=== PATIENT | male | born 1985 | race Caucasian/White ===

== ENCOUNTER → 2019-06-14 14:56 | Outpatient (CLI) | payer BC, SELFPAY ==
[2019-06-14 17:36] LABS: Absolute Lymphocyte Count 2.13 X10^3/uL (0.83-4.51); Absolute Neutrophil Count 3.8 X10^3/uL (2.0-7.7); Basophil# 0.01 X10^3/uL; Basophil% 0.1 % (0-1); Eosinophil# 0.25 X10^3/uL; Eosinophils% 3.7 % (0-5); Hemoglobin 16.3 g/dL (13.0-16.5); Lymphocyte # 2.13 X10^3/ul (4.0); Lymphocyte % 31.6 % (19-41); Mean Corpuscular Hgb 29.6 pg (27.0-32.0); Mean Corpuscular Volume 87.3 fL (80-94); Mean Platelet Vol. 10.2 fl (6.2-12.0); Monocyte# 0.58 X10^3/uL; Monocyte% 8.6 % (0-10); NRBC Flagged by Analyzer 0 % (0-5); Neutrophil # 3.76 X10^3/uL (2.7-7.7); Neutrophil % 55.9 % (47-70); Platelet Count 286 K/mm3 (150-450); RBC Distribution Width CV 12.2 % (11.6-14.6); RBC Distribution Width SD 39.2 fl (35.1-43.9); White Blood Count 6.7 K/mm3 (4.4-11.0)
[2019-06-14 18:52] LABS: ALB/GLOB Ratio 1.1 RATIO (0.9-2.4); AST(SGOT) 104 U/L (15-37); Alanine Aminotransfer ALT/SGPT 320 U/L (16-61); Albumin, Serum 4.1 g/dL (3.2-5.0); Alkaline Phosphatase 105 U/L (45-117); Anion Gap 6 (5-15); BUN 19 mg/dL (7-18); BUN/Creat Ratio 21.1 RATIO (10-20); Calcium,Total 9.5 mg/dL (8.5-10.1); Chloride 105 mmol/L (98-107); Cholesterol 263 mg/dL (200); EST Glomerular Filtration Rate 103 mL/min (>60); Est Glom Filt Rate - Afr Amer 124 mL/min (>60); Ferritin 268 ng/mL (26-388); Globulin 3.7 g/dL (2.2-4.2); Glucose 85 mg/dL (74-106); High Density Lipoprotein 45 mg/dL; Potassium 4.5 mmol/L (3.5-5.1); Protein, Total 7.8 g/dL (6.4-8.2); Sodium Level 136 mmol/L (136-145); Thyroid Stim Hormone (TSH) 3.26 uIU/mL (0.358-3.74)
== END ==
PROVIDERS: PCP Family Medicine; Visit Provider Family Medicine
DX: G25.81 Restless legs syndrome (principal); I10 Essential (primary) hypertension
CPT/HCPCS: 36415; 80053; 82465; 82728; 83718; 84443; 85025

== ENCOUNTER → 2019-06-15 12:11 | Outpatient (CLI) | payer BC, SELFPAY ==
[2019-06-16 09:03] LABS: Hepatitis B Surface Antibody Non-Reactive
[2019-06-16 09:06] LABS: Hepatitis C Antibody REACTIVE (Nonreactive)
[2019-06-19 14:48] LABS: ANTINUCLEAR ANTIBODIES DIRECT Negative (Negative)
[2019-06-19 16:07] LABS: Endomysial Antibody IgA Negative (Negative); Hepatitis A AB, Total Negative (Negative); Immunoglobulin A 369 mg/dL (90-386)
[2019-06-19 17:02] LABS: Anti-Smooth Muscle ABS 11 Units (0-19); Hepatitis A IgM Antibody Negative (Negative); t-Transglutaminase IgA <2 U/mL (0-3)
== END ==
PROVIDERS: PCP Family Medicine; Visit Provider Family Medicine
DX: R74.0 Nonspecific elevation of levels of transaminase and lactic acid dehydrogenase [LDH] (principal)
CPT/HCPCS: 36415; 82784; 83516; 86038; 86255; 86706; 86708; 86709; 86803

== ENCOUNTER → 2019-06-19 09:34 | Outpatient (CLI) | payer BC, SELFPAY ==
[2019-06-19 13:26] LABS: HIV - WCH Non-Reactive (Nonreactive); Hepatitis B Surface Antigen Non-Reactive (Nonreactive)
[2019-06-22 08:06] LABS: Rapid Plasmin Reagin (RPR) NONREACTIVE (NONREACTIVE)
[2019-06-22 16:07] LABS: HCV Quant. RNA PCR 183000 IU/mL (.)
[2019-06-22 16:15] LABS: HCV log 10 5.262 (.)
== END ==
PROVIDERS: PCP Family Medicine; Visit Provider Family Medicine
DX: R76.8 Other specified abnormal immunological findings in serum (principal); R74.0 Nonspecific elevation of levels of transaminase and lactic acid dehydrogenase [LDH]
CPT/HCPCS: 36415; 82784; 83516; 86255; 86592; 86703; 86708; 86709; 86803; 87340; 87522

== ENCOUNTER → 2020-04-17 11:10 | Outpatient (CLI) | payer BC, SELFPAY ==
[2020-04-17 15:16] LABS: Absolute Lymphocyte Count 1.59 X10^3/uL (0.83-4.51); Basophil# 0.01 X10^3/uL; Basophil% 0.2 % (0-1); Eosinophil# 0.16 X10^3/uL; Eosinophils% 3.8 % (0-5); Hematocrit 43.6 % (40-54); Hemoglobin 14.7 g/dL (13.0-16.5); Lymphocyte # 1.59 X10^3/ul (4.0); Lymphocyte % 37.8 % (19-41); Mean Corp Hgb Conc 33.7 g/dL (32-36); Mean Corpuscular Hgb 29.9 pg (27.0-32.0); Mean Corpuscular Volume 88.6 fL (80-94); Monocyte# 0.48 X10^3/uL; Monocyte% 11.4 % (0-10); NRBC Flagged by Analyzer 0 % (0-5); Neutrophil # 1.96 X10^3/uL (2.7-7.7); Neutrophil % 46.6 % (47-70); Platelet Count 217 K/mm3 (150-450); RBC Distribution Width CV 12.1 % (11.6-14.6); RBC Distribution Width SD 38.8 fl (35.1-43.9); Red Blood Count 4.92 M/mm3 (4.6-6.2); White Blood Count 4.2 K/mm3 (4.4-11.0)
[2020-04-17 15:32] LABS: Prothrombin Time (Protime)PT. 12.8 SECONDS (11.7-14.9)
[2020-04-17 15:51] LABS: AST(SGOT) 217 U/L (15-37); Alanine Aminotransfer ALT/SGPT 506 U/L (16-61); Alkaline Phosphatase 114 U/L (45-117); Anion Gap 8 (5-15); BUN 16 mg/dL (7-18); BUN/Creat Ratio 16.1 RATIO (10-20); Bilirubin, Direct 0.15 mg/dL (0.00-0.30); Calcium,Total 9.4 mg/dL (8.5-10.1); Chloride 104 mmol/L (98-107); EST Glomerular Filtration Rate 91 mL/min (>60); Est Glom Filt Rate - Afr Amer 110 mL/min (>60); Globulin 3.7 g/dL (2.2-4.2); Glucose 99 mg/dL (74-106); Potassium 3.9 mmol/L (3.5-5.1); Protein, Total 7.7 g/dL (6.4-8.2); Sodium Level 138 mmol/L (136-145)
[2020-04-17 16:19] LABS: HIV - WCH Non-Reactive (Nonreactive); Hepatitis B Surface Antibody Non-Reactive; Hepatitis B Surface Antigen Non-Reactive (Nonreactive)
[2020-04-22 03:06] LABS: Comment 2b (.); HCV Quant. RNA PCR 1580000 IU/mL (.); Hepatitis A AB, Total Negative (Negative); Hepatitis A IgM Antibody Negative (Negative); Hepatitis B Core Ab Total Negative (Negative)
[2020-04-22 12:12] LABS: HCV log 10 6.199 (.); Hepatitis B Core AB IgM Negative (Negative)
== END ==
PROVIDERS: PCP Family Medicine; Referring Provider Family Medicine; Visit Provider Internal Medicine Infectious Disease
DX: B18.2 Chronic viral hepatitis C (principal)
CPT/HCPCS: 36415; 80048; 80076; 85025; 85610; 86703; 86704; 86705; 86706; 86708; 86709; 87340; 87522; 87902

== ENCOUNTER → 2024-05-11 | Outpatient (CLI) | payer BC, SELFPAY ==
[2024-05-11 12:39] LABS: Absolute Lymphocyte Count 1.78 X10^3/uL (0.83-4.51); Absolute Neutrophil Count 2.4 X10^3/uL (2.0-7.7); Basophil# 0.01 X10^3/uL; Basophil% 0.2 % (0-1); Eosinophil# 0.18 X10^3/uL; Eosinophils% 3.8 % (0-5); Hematocrit 39.9 % (40-54); Hemoglobin 13.8 g/dL (13.0-16.5); Lymphocyte # 1.78 X10^3/ul (0.83-4.51); Lymphocyte % 37.2 % (19-41); Mean Corp Hgb Conc 34.6 g/dL (32-36); Mean Corpuscular Hgb 29.9 pg (27.0-32.0); Mean Corpuscular Volume 86.4 fL (80-94); Mean Platelet Vol. 9.7 fl (6.2-12.0); Monocyte# 0.37 X10^3/uL; Monocyte% 7.7 % (0-10); NRBC Flagged by Analyzer 0 % (0-5); Neutrophil # 2.43 X10^3/uL (2.7-7.7); Neutrophil % 50.9 % (47-70); Platelet Count 245 K/mm3 (150-450); RBC Distribution Width CV 11.9 % (11.6-14.6); RBC Distribution Width SD 37.6 fl (35.1-43.9); Red Blood Count 4.62 M/mm3 (4.6-6.2); White Blood Count 4.8 K/mm3 (4.4-11.0)
[2024-05-11 13:07] LABS: Luteinizing Hormone 2.8 mIU/mL; PSA,Total - Annual Screen 0.59 ng/mL (0.02-4.00)
== END | disposition home or self-care (01) ==
LOC: MFPLAB 09:18
PROVIDERS: PCP Family Medicine
DX: E29.1 Testicular hypofunction (principal)
CPT/HCPCS: 36415; 83002; 84146; 84153; 84402; 84403; 85025; G0103

== ENCOUNTER → 2024-09-01 | Outpatient (CLI) | payer BC, SELFPAY ==
--- OUTSIDE RECORDS SUMMARY | 2024-09-01 12:38 | XMS RPT_ITS | CCD ---
Author Organization [facility] Care Team Providers Care Attending Urologist Name Role Phone Marielle Gage MD Primary Care Provider [phone] URVASHI MOSELEY Attending Unavailable MARIELLE GAGE Primary Care Unavailable Marielle Gage MD Primary Care Provider DEMARCUS BOWSER Attending Unavailable Marielle Gage Primary Care Unavailable Marielle Gage Primary Care Unavailable Marielle Gage Attending Unavailable Marielle Gage Referring Unavailable Marielle Gage Primary Care Unavailable Marielle Gage Attending Unavailable Marielle Gage Referring Unavailable Medications Current Medications Medication Drug Class(es) Dates Sig (Normalized) Sig (Original) tadalafil 5 mg oral tablet (3 sources) Phosphodiesterase 5 Inhibitor Start: 11-12-2022 End: 02-23-2024 take 1 tablet by mouth once daily as needed Tadalafil (CIALIS) 5 mg tablet TAKE 1 TABLET BY MOUTH ONCE DAILY NEEDED 1 TO 2 HOURS BEFORE SEXUAL ACTIVITY. 90 tablet 5 02/23/2024 Active Comment on above: Take 1 tablet by cecile th once daily as needed. Take 1-2 hours before sexual activity. 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-2024 Chronic Other male genital disorders (1 source) Induration penis plastica; Translations: [Peyronie's disease] Onset: 11-12-2022 Chronic Other male genital disorders (1 source) Other specified disorders of penis; Translations: [Penile pain] Onset: 11-12-2022 Chronic Other male genital disorders (1 source) Male erectile dysfunction, unspecified; Translations: [Impotence of organic origin] Onset: 11-12-2022 Chronic Results Test Name Value Interpretation Reference Range Facil ity PROLACTIN 4465on 04-07-2025 PROLACTIN 17.7 ng/mL Normal 3.9-22.7 [facility] Comment on above: Result Comment: Perf ormed at: - [facility] [id number] [employer] Armhole Baster: Sonu Mancuso PhD, Phone: [phone] Performed at: - [facility] [id number] [employer] Armhole Baster: Jeff Aguilar MD, Phone: [phone] Performed By: #### L 3100.5400, L3410.9998, L100.0100, L3100.5170, L3100.5310, L501.9910 #### [facility] [address] [place], [place], [id number] Testosterone, Total / Freeon 05-22-2024 TESTOSTER,FREE 4.72 ng/dL Abnormal 5.00-21.00 [facility] Comment on above: Order Comment: N Performed By: #### L 3100.5400, L3410.9998, L100.0100, L3100.5170, L3100.5310, L501.9910 #### [facility] [address] [place], [place], [id number] TESTOSTER,TOTAL 191 ng/dL Low 264-916 [facility] Comment on above: Order Comment: N Result Comment: Adul t male reference interval is based on a population of healthy nonobese males (BMI <30) between 19 and 39 years old. Sravanthi et.al. JCEM 2017,102;1470-9594. PMID: 91986260. Performed By: #### L 3100.5400, L3410.9998, L100.0100, L3100.5170, L3100.5310, L501.9910 #### [facility] [address] [place], [place], [phone] (682) TESTOSTERONE,%F 2.47 Normal 1.50-4.20 [facility] Comment on above: Order Comment: N Performed By: #### L 3100.5400, L3410.9998, L100.0100, L3100.5170, L3100.5310, L501.9910 #### [facility] [address] [place], [address] L3410.9998on 05-17-2024 [facility] Misc. Normal [facility] Comment on above: Order Comment: ADDED TO [facility] [id number] TESTOSTERONE LC/MS/F/T SERUMRF Result Comment: TEST RESULTS LIMITS Testosterone, Total, LC/MS, 228.1 Low ng/dL 264.0-916.0 This [facility] LC/MS-MS method is currently certified by the CDC Hormone Standardization Program (HoSt). Adult male reference interval is based on a population of healthy nonobese males (BMI <30) between 19 and 39 years old. april Fishman.al. JCEM 2017,102;8042-5267. PMID: 39903390. Free Testosterone(Direct) 10.6 pg/mL 8.7-25.1 TESTING PERFORMED AT [facility]. ORIGINAL REPORT ON FILE IN LAB CONTAINS ADDITIONAL TEST SITE INFORMATION. Performed By: #### L 3100.5400, L3410.9998, L100.0100, L3100.5170, L3100.5310, L501.9910 #### [facility] [address] [place], [address] CBC W/Diff, Automatedon 04-16 Absolute Lymph 1.78 X10 3/uL Normal 0.83-4.51 [facility] Comment on above: Performed By: #### L 3100.5400, L3410.9998, L100.0100, L3100.5170, L3100.5310, L501.9910 #### [facility] [address] [place], [address] Absolute Neut 2.4 X10 3/uL Normal 2.0-7.7 [facility] Comment on above: Performed By: #### L 3100.5400, L3410.9998, L100.0100, L3100.5170, L3100.5310, L501.9910 #### [facility] [address] [place], [address] Basophils/100 WBC (Bld) 0.2 % Normal 0-1 [facility] Comment on above: Performed By: #### L 3100.5400, L3410.9998, L100.0100, L3100.5170, L3100.5310, L501.9910 #### [facility] [address] [place], [address] Eosinophils/100 WBC (Bld) 3.8 % Normal 0-5 [facility] Comment on above: Performed By: #### L 3100.5400, L3410.9998, L100.0100, L3100.5170, L3100.5310, L501.9910 #### [facility] [address] [place], [address] Erythrocyte distribution width (RBC) [Ratio] 11.9 % Normal 11.6-14.6 [facility] Comment on above: Performed By: #### L 3100.5400, L3410.9998, L100.0100, L3100.5170, L3100.5310, L501.9910 #### [facility] [address] [place], [address] Hematocrit (Bld) [Volume fraction] 39.9 % Low 40-54 [facility] Comment on above: Performed By: #### L 3100.5400, L3410.9998, L100.0100, L3100.5170, L3100.5310, L501.9910 #### [facility] [address] [place], [address] Hemoglobin (Bld) [Mass/Vol] 13.8 g/dL Normal 13.0-16.5 [facility] Comment on above: Performed By: #### L 3100.5400, L3410.9998, L100.0100, L3100.5170, L3100.5310, L501.9910 #### [facility] [address] [place], [address] IG% 0.200 Normal 0.0-0.9 [facility] Comment on above: Result Comment: IG% - Immature Granulocytes (promyelocytes, myelocytes and metamyelocytes) > 1% indicates that a LEFT SHIFT is Present. Performed By: #### L 3100.5400, L3410.9998, L100.0100, L3100.5170, L3100.5310, L501.9910 #### [facility] [address] [place], [address] Lymphocytes/100 WBC (Bld) 37.2 % Normal 19-41 [facility] Comment on above: Performed By: #### L 3100.5400, L3410.9998, L100.0100, L3100.5170, L3100.5310, L501.9910 #### [facility] [address] [place], [address] MCH (RBC) [Entitic mass] 29.9 pg Normal 27.0-32.0 [facility] Comment on above: Performed By: #### L 3100.5400, L3410.9998, L100.0100, L3100.5170, L3100.5310, L501.9910 #### [facility] [address] [place], [address] MCHC (RBC) [Mass/Vol] 34.6 g/dL Normal 32-36 [facility] Comment on above: Performed By: #### L 3100.5400, L3410.9998, L100.0100, L3100.5170, L3100.5310, L501.9910 #### [facility] [address] [place], [address] MCV (RBC) [Entitic vol] 86.4 fL Normal 80-94 [facility] Comment on above: Performed By: #### L 3100.5400, L3410.9998, L100.0100, L3100.5170, L3100.5310, L501.9910 #### [facility] [address] [place], [address] Monocytes/100 WBC (Bld) 7.7 % Normal 0-10 [facility] Comment on above: Performed By: #### L 3100.5400, L3410.9998, L100.0100, L3100.5170, L3100.5310, L501.9910 #### [facility] [address] [place], [address] Neutrophils/100 WBC (Bld) 50.9 % Normal 47-70 [facility] Comment on above: Performed By: #### L 3100.5400, L3410.9998, L100.0100, L3100.5170, L3100.5310, L501.9910 #### [facility] [address] [place], [address] Nucleated RBC (Bld) [#/Vol] 0 10*3/uL Normal 0-5 [facility] Comment on above: Performed By: #### L 3100.5400, L3410.9998, L100.0100, L3100.5170, L3100.5310, L501.9910 #### [facility] [address] [place], [address] Platelet mean volume (Bld) [Entitic vol] 9.7 fL Normal 6.2-12.0 [facility] Comment on above: Performed By: #### L 3100.5400, L3410.9998, L100.0100, L3100.5170, L3100.5310, L501.9910 #### [facility] [address] [place], [address] Platelets (Bld) [#/Vol] 245 10*3/uL Normal 150-450 [facility] Comment on above: Performed By: #### L 3100.5400, L3410.9998, L100.0100, L3100.5170, L3100.5310, L501.9910 #### [facility] [address] [place], [address] RBC (Bld) [#/Vol] 4.62 10*6/uL Normal 4.6-6.2 [facility] Comment on above: Performed By: #### L 3100.5400, L3410.9998, L100.0100, L3100.5170, L3100.5310, L501.9910 #### [facility] [address] [place], [address] RDW SD 37.6 fl Normal 35.1-43.9 [facility] Comment on above: Performed By: #### L 3100.5400, L3410.9998, L100.0100, L3100.5170, L3100.5310, L501.9910 #### [facility] [address] [place], [address] WBC (Bld) [#/Vol] 4.8 10*3/uL Normal 4.4-11.0 [facility] Comment on above: Performed By: #### L 3100.5400, L3410.9998, L100.0100, L3100.5170, L3100.5310, L501.9910 #### [facility] [address] [place], [place], [address] Luteinizing Hormoneon 2024 LH 2.8 mIU/mL Normal [facility] Comment on above: Result Comment: FEMA LE: Follicular: 1.9-12.5 mIU/mL Midcycle: 8.7-76.3 mIU/mL Luteal: 0.5-16.9 mIU/mL Post Menopause: 15.9-54.0 mIU/mL MALE: 20-70 Years: 1.5-9.3 mIU/mL >70 Years: 3.1-34.6 mIU/mL Performed By: #### L 3100.5400, L3410.9998, L100.0100, L3100.5170, L3100.5310, L501.9910 #### [facility] [address] [place], [place], [id number] PSA,Total - Annual Screenon 05-11-2024 PSA,TOT SCREEN 0.59 ng/mL Normal 0.02-4.00 [facility] Comment on above: Result Comment: This test was performed using the [facility] tPSA method. Measured values of a patient??sample can vary depending on the testing procedure used. PSA values determined on patient samples by different testing procedures cannot be used interchangeably. If there is a change in PSA assays while monitoring therapy, sequential testing should be performed to confirm baseline values. Performed By: #### L 3100.5400, L3410.9998, L100.0100, L3100.5170, L3100.5310, L501.9910 #### [facility] [address] [place], [address] CNOVon 11-12-2022 CNOV Office Visit (AKURFL ) CHARLETTE DAVIES ([id number]) 1985 M Date Time Provider Department 11/12/22 9:00 AM URVASHI MOSELEY During your visit today, we recorded the following information about you: Pulse Weight Height 68/minute 108.9 kg 1.829 m Urvashi Moseley MD 11/12/2022 9:51 AM Signed [facility] UROLOGY NEW PATIENT CLINIC NOTE PATIENT INFO: Charlette Davies (37 year old) Referred by: No referring provider defined for this encounter. 11/12/2022 UROLOGY DIAGNOSES: 1. Peyronie's disease - ICD9: 607.85, ICD10: N48.6 (primary diagnosis) 2. Penile pain - ICD9: 607.9, ICD10: N48.89 3. 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 Low scores (10 or less) suggest moderate to severe ED. PMH: History reviewed. No pertinent past medical history. PSH: History reviewed. No pertinent surgical history. SH: Social History Tobacco Use Smoking status: Never Smokeless tobacco: Never Substance Use Topics Alcohol use: Yes Alcohol/week: 1.0 standard drink of alcohol Types: 1 Cans of beer per week Comment: one every 2 months Drug use: Never FH: History reviewed. No pertinent family history. REVIEW OF SYSTEMS: Review of Systems: Constitutional: No weakness, fever/chills, unexplained weight change Psychiatric: Stable mood Skin: No rashes or lesions HEENT: No blurred vision or double vision. No severe or worsening headaches. Sense of smell intact Neck: No masses or pain Chest: No shortness of breath or cough. No history of recurrent pneumonia, bronchitis, or sinustitis. CVS: No chest pains or palpatations. No history of cardiovascular disease. GI: No nausea, vomiting or abdominal pain Neurologic: No weakness or sensory changes : see above Musculoskeletal: Stable All other systems reviewed and noncontributory Allergy: Patient has no known allergies. MEDICATIONS: Current Outpatient Medications Medication Sig Dispense Refill Tadalafil (CIALIS) 5 mg tablet Take 1 tablet by mouth once daily as needed. Take 1-2 hours before sexual activity. 90 tablet 5 No current facility-administered medications for this visit. PHYSICAL EXAM: Pulse 68 Ht 182.9 cm (6') Wt 108.9 kg (240 lb) BMI 32.55 kg/m? Body mass index is 32.55 kg/m?. General Appearance/ Constitutional: Well developed, well nourished, and in no apparent distress HEENT: Normal Neck: Lymph Nodes: Normal Cardiac: Normal Breast: Not examined Pulmonary: Ascultation: Not examined Effort: Normal GI: Soft, Non-tender, Non-distended and Costovertebral angle tenderness absent Peripheral Vascular: Not examined Extremities: Cyanosis absent, Clubbing absent and Edema absent Skin: Normal Neurologic: Normal, Grossly non-focal, Alert and oriented and Affect appropriate (MALE): Penis: Normal without external lesions and Circumcised, palp plaque midshaft Testicles: Normal Scrotum: Normal No results found for: PSA, PSAPER DIAGNOSES: 1. Peyronie's disease - ICD9: 607.85, ICD10: N48.6 (primary diagnosis) 2. Penile pain - ICD9: 607.9, ICD10: N48.89 3. 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 Will start Cialis 5mg daily Will trial traction tx RTO 6 mo, discussed PDDU, etc, goniometer given Urvashi Moseley MD Allergies As of Date: 11/12/2022 (No Known Allergies) Date Reviewed: 11/12/2022 Reviewed by: Fartun Canela Cma - Fully Assessed Reason for Visit: Peyronie's Disease [351] Primary Visit Diagnosis:Peyronie's disease [N48.6] Other Visit Diagnoses:Penile pain [N48.89] Impotence of organic origin [N52.9] Order(s):Tadalafil (CIALIS) 5 mg tabletTake 1 tablet by mouth once daily as needed. Take 1-2 hours before sexual activity.Disp: 90 tabletRfl: 5 Prescriptions as of 11/12/2022 - Tadalafil (CIALIS) 5 mg tablet Take 1 tablet by mouth once daily as needed. Take 1-2 hours before sexual activity. Problem List As Of Date: 11/12/2022 (None) Prescriptions ordered this encounter Disp Refills Start End TADALAFIL 5 MG TABLET 90 (more content not included)... Normal [facility] CHARLE[facility] DAVIES ([id number]) 1985 M Date Time Provider Department 11/12/22 URVASHI MOSELEY During your visit today, we recorded the following information about you: Saul Sewell MA 11/12/2022 1:07 PM Signed Patient called in he was seen today for peyronie's disease. He was able to fine a device called Phallosan Forte online that is less expensive than the 2 you had mentioned to him. He wanted to make sure this would be ok to use. DANIELLE Zhu Donna, MA 11/12/2022 1:25 PM Signed Left message to call office to advise patient of below. DANIELLE Zhu Donna, MA 11/12/2022 1:32 PM Signed Patient called back and was advised of Dr. Moseley recommendations. Saul Derrit, HISTORICAL MANUSCRIPTS CURATOR Allergies As of Date: 11/12/2022 (No Known Allergies) Date Reviewed: 11/12/2022 Reviewed by: Fartun Canela Cma - Fully Assessed Reason for Visit: Patient Question [4337] Prescriptions as of 11/12/2022 - Tadalafil (CIALIS) 5 mg tablet Take 1 tablet by mouth once daily as needed. Take 1-2 hours before sexual activity. Problem List As Of Date: 11/12/2022 (None) Encounter Status:Closed by SAUL SEWELL on 11/12/22 [facility] CNPNichole 08-14-2022 CNPN Telephone (UROLAE) CHARLETTE DAVIES ([id number]) 1985 Date Time Provider Department 08/14/22 DEVIN HARTLEY During your visit today, we recorded the following information about you: Angelique cisneros MA 08/14/2022 11:35 AM Signed LMOM for pt to call office back pt 08/19/2022 appt was r/s to Dr. Moseley 10/08/2022. Angelique cisneros MA Allergies As of Date: 08/14/2022 (Not on File) Date Reviewed: Never Reviewed Reason for Visit: Appointment [186] Problem List As Of Date: 08/14/2022 (None) Encounter Status:Closed by ANGELIQUE CISNEROS on 08/14/22 [facility] ELASTOGRAPHY WITH IMAGINGon 07-10-2020 ELASTOGRAPHY WITH IMAGING ELASTOGRAPHY WITH IMAGING Ordering Physician: Guevara Mcfarland MD 07/10/2020 11:00 AM ULTRASOUND OF THE LIVER AND ELASTOGRAPHY: Clinical Statement: Chronic hepatitis C. FINDINGS: The liver measures 16.9 cm in length. Hepatic parenchymal echogenicity is within normal limits. No focal liver mass. No perihepatic ascites. ARFI median: 1.0 m/s IQR - 0.05 IQR/median ratio = 0.10 (must be 0.15 or less to ensure technical adequacy) Recommendation for Interpretation of Liver Stiffness Values Obtained with ARFI Techniques in Patients with Viral Hepatitis and NAFLD: Liver Stiffness Value: Recommendation: <=5 kPa (1.3 m/sec) High probability of being normal <9 kPa (1.7 m/sec) In absence of other known clinical signs, rules out cACLD. <9 kPa (1.7 m/sec) If known clinical signs, may need further test for confirmation. 9-13 kPa (1.7-2.1 m/sec) Suggestive of cACLD but need further test for confirmation > 13 kPa (2.1 m/sec) Rules in cACLD > 17 kPa (2.4 m/sec) Suggestive of CSPH ARFI = acoustic radiation force impulse cACLD = compensated advanced chronic liver disease CSPH = clinically significant portal hypertension NAFLD = non-alcoholic fatty liver disease IMPRESSION: Unremarkable sonographic appearance of the liver. Liver elastography results indicate a high probability of being normal. ---- Electronic Signature on File ---- Signed By: Leonard Fisher MD [email or web address] Dictated: 07/10/2020 11:54 AM Signed: 07/10/2020 11:55 AM Reported By: LEONARD FISHER M.D. Signed By: LEONARD FISHER M.D. [facility] Encounters Encounter Date Encounter Type Care Provider Facility Start: 05-24-2024 ambulatory Marielle Gage Facility:[facility] Start: 05-23-2024 ambulatory Marielle Gage Facility:[facility] Start: 05-11-2024 End: 05-11-2024 ambulatory DEMARCUS BOWSER Facility:[facility] Start: 02-22-2024 End: 02-23-2024 Refill Urvashi Moseley MD Work Phone: [facility] Comment on above: Refill Request Start: 11-12-2022 Telephone encounter Urvashi griffin MD Work Phone: Urology Comment on above: Patient Question Start: 11-12-2022 End: 11-12-2022 ambulatory [facility] Facility:[facility] Start: 08-14-2022 Telephone encounter Devin valero MD Work Phone: Urology Comment on above: Appointment Plan of Treatment Date Care Activity Detail Author Start: 10-17-2023 Covid-19 Vaccine ( season) Covid-19 Vaccine ( season) [facility] Start: 10-17-2023 Influenza vaccination Influenza Vacc ine (#1) [facility] Start: 10-16-2022 Influenza vaccination [facility] Start: 02-15-2022 DEPRESSION ASSESSMENT DEPRESSION ASS ESSMENT [facility] Start: 2020 Lipid 1996 panel - S ebenezer or Plasma Lipid Screening [facility] Start: 2020 Lipid panel Lipid Screening [facility] Start: 2020 LIPID SCREEN LIPID SCREEN [facility] Start: 2004 Hepatitis B Vaccine (1 of 3 - 19+ 3-dose series) Hepatitis B Vaccine (1 of 3 - 19+ 3-dose series) [facility] Start: 2004 Urine microalbumin profile [facility] Start: 06-25-2003 Anxiety Screening Anxiety Screening [facility] Start: 06-25-2003 Depression Screening Depression Scre ening [facility] Start: 06-25-2003 HEPATITIS C SCREENING HEPATITIS C [facility] Start: 06-25-2003 Hepatitis C screening Hepatitis C [facility] Start: 06-25-2003 HIV SCREENING HIV SCREENING [facility] Start: 06-25-2003 HIV screening HIV Screening [facility] Start: 1985 COVID-19 VACCINE (#1) COVID-19 VACCI NE (#1) [facility] Start: 1985 HEPATITIS B (1 of 3 - 3-dose series) HEPATITIS B (1 of 3 - 3-dose series) [facility] Start: 1985 Hepatitis B Vaccine (1 of 3 - 3-dose series) Hepatitis B Vaccine (1 of 3 - 3-dose series) [facility] Payers Date Payer Category Payer Unknown [id number] 2024 Self-pay 2018 Unknown [employer] PPO OOS [id number] 2018-Present [phone] [address] [place] [address] PPO [id number] 2018 Unknown [id number] Unknown [id number] Unknown [id number] Unknown [id number] Social History Date Type Detail Facility Tobacco smoking stat [facility] Tobacco smoking consumption unknown [facility] Start: 1985 Sex Assigned At Not on file [facility] Start: 11-12-2022 Tobacco smoking stat [facility] Never smoked tobacco [facility] Start: 11-12-2022 Tobacco use and exposure Smokeless t obacco non-user [facility] Start: 11-12-2022 Alcohol intake Current drinke r of alcohol (finding) [facility] Start: 11-12-2022 Alcohol intake [facility] Start: 11-12-2022 Tobacco use panel [facility] National Score (1-10 0), lower number is lower risk 72 [facility] Start: 11-12-2022 Alcohol Comment one every 2 months [facility] Note 11-12-2022 Telephone Encounter - Saul Sewell MA - 11/12/2022 1:32 PM EDTTelephone Encounter - Saul Sewell MA - 11/12/2022 1:25 PM EDTTelephone Encounter - Saul Sewell MA - 11/12/2022 1:03 PM EDT Note Date & Type Note Facility 11-12-2022 Miscellaneous Notes Formattin g of this note might be different from the original. Patient called back and was advised of Dr. Lorelei Sewell CMA Left message to call office to advise patient of below. Saul Sewell CMA Patient called in he was seen today for peyronie's disease. He was able to fine a device called Phallosan Forte online that is less expensive than the 2 you had mentioned to him. He wanted to make sure this would be ok to use. Saul Sewell CMA documented in this encounter [facility] Progress note 11-12-2022 Note Date & Type Note Facility 11-12-2022 Note HNO ID: [id number] Author: Urvashi Moseley MD Service: ? Author Type: Physician Type: Progress Notes Filed: 11/12/2022 9:51 AM Note Text: [facility] UROLOGY NEW PATIENT CLINIC NOTE PATIENT INFO: Charlette Davies (37 year old) Referred by: No referring provider defined for this encounter. 11/12/2022 UROLOGY DIAGNOSES: 1. Peyronie's disease - ICD9: 607.85, ICD10: N48.6 (primary diagnosis) 2. Penile pain - ICD9: 607.9, ICD10: N48.89 3. 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 Low scores (10 or less) suggest moderate to severe ED. PMH: History reviewed. No pertinent past medical history. PSH: History reviewed. No pertinent surgical history. SH: Social History Tobacco Use Smoking status: Never Smokeless tobacco: Never Substance Use Topics Alcohol use: Yes Alcohol/week: 1.0 standard drink of alcohol Types: 1 Cans of beer per week Comment: one every 2 months Drug use: Never FH: History reviewed. No pertinent family history. REVIEW OF SYSTEMS: Review of Systems: Constitutional: No weakness, fever/chills, unexplained weight change Psychiatric: Stable mood Skin: No rashes or lesions HEENT: No blurred vision or double vision. No severe or worsening headaches. Sense of smell intact Neck: No masses or pain Chest: No shortness of breath or cough. No history of recurrent pneumonia, bronchitis, or sinustitis. CVS: No chest pains or palpatations. No history of cardiovascular disease. GI: No nausea, vomiting or abdominal pain Neurologic: No weakness or sensory changes : see above Musculoskeletal: Stable All other systems reviewed and noncontributory Allergy: Patient has no known allergies. MEDICATIONS: Current Outpatient Medications Medication Sig Dispense Refill Tadalafil (CIALIS) 5 mg tablet Take 1 tablet by mouth once daily as needed. Take 1-2 hours before sexual activity. 90 tablet 5 No current facility-administered medications for this visit. PHYSICAL EXAM: Pulse 68 Ht 182.9 cm (6') Wt 108.9 kg (240 lb) BMI 32.55 kg/m? Body mass index is 32.55 kg/m?. General Appearance/ Constitutional: Well developed, well nourished, and in no apparent distress HEENT: Normal Neck: Lymph Nodes: Normal Cardiac: Normal Breast: Not examined Pulmonary: Ascultation: Not examined Effort: Normal GI: Soft, Non-tender, Non-distended and Costovertebral angle tenderness absent Peripheral Vascular: Not examined Extremities: Cyanosis absent, Clubbing absent and Edema absent Skin: Normal Neurologic: Normal, Grossly non-focal, Alert and oriented and Affect appropriate (MALE): Penis: Normal without external lesions and Circumcised, palp plaque midshaft Testicles: Normal Scrotum: Normal No results found for: PSA, PSAPER DIAGNOSES: 1. Peyronie's disease - ICD9: 607.85, ICD10: N48.6 (primary diagnosis) 2. Penile pain - ICD9: 607.9, ICD10: N48.89 3. 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 Will start Cialis 5mg daily Will trial traction tx RTO 6 mo, discussed PDDU, etc, goniometer given Urvashi Moseley MD [facility] Note 08-14-2022 Telephone Encounter - Angelique Cisneros MA - 08/14/2022 11:34 AM EDT Note Date & Type Note Facility 08-14-2022 Miscellaneous Notes Formattin g of this note might be different from the original. LMOM for pt to call office back pt 08/19/2022 appt was r/s to Dr. Moseley 10/08/2022. Angelique cisneros MA documented in this encounter [facility] Summary Purpose Family History No Family History Records FoundNo Family History Records FoundNo Family History Records Found Advance Directives No Advanced Directives Records FoundNo Advanced Directives Records FoundNo Advanced Directives Records Found Additional Source Comments (unrecognized sect ion and content) No Status Records FoundNo Status Records FoundNo Status Records Found INFORMATION SOURCE (unrecogn ized section and content) DATE CREATED AUTHOR 07/18/2020 [facility] Madie steward Gwendolyn DATE CREATED AUTHOR AUTHOR'S ORGANIZ ATION 11/19/2022 [facility] DATE CREATED AUTHOR AUTHOR'S ORGANIZ ATION 08/10/2024 [facility] Source Comments (unrecognize d section and content) In the event this informatio n is protected by the Federal Confidentiality of Alcohol and Drug Abuse Patient Records regulations: The Federal rules restrict any use of the information to criminally investigate or prosecute any alcohol or drug abuse patient.[facility] the event this information is protected by the Federal Confidentiality of Alcohol and Drug Abuse Patient Records regulations: The Federal rules restrict any use of the information to criminally investigate or prosecute any alcohol or drug abuse patient.[facility] the event this information is protected by the Federal Confidentiality of Alcohol and Drug Abuse Patient Records regulations: The Federal rules restrict any use of the information to criminally investigate or prosecute any alcohol or drug abuse patient.[facility] Reason for Visit (unrecogniz ed section and content) Reason Comments Appointment Reason Comments Patient Question Reason Comments Refill Request Care Teams (unrecognized sec tion and content) Attending Urologist Relationship Specialty Start Date End Date Marielel Gage MD [address] [place] [address] PCP - General Family Medicine 01/13/22 Attending Urologist Relationship Specialty Start Date End Date Marielle Gage MD [address] [place] [address] PCP - General Family Medicine 01/13/22 FOR RECORDS PERTAINING TO PATIENTS WHO ARE OR HAVE BEEN ENROLLED IN A CHEMICAL DEPENDENCY/SUBSTANCEABUSE PROGRAM, SOME INFORMATION MAY BE OMITTED. This clinical summary was aggregated from multiple sources. Caution should be exercised in using it in the provision of clinical care. This summary normalizes information from multiple sources, and as a consequence, information in this document may materially change the coding, format and clinical context of patient data. In addition, data may be omitted in some cases. CLINICAL DECISIONS SHOULD BE BASED ON THE PRIMARY CLINICAL RECORDS. [facility] [facility] provides no warranty or guarantee of the accuracy or completeness of information in this document.
== END | disposition home or self-care (01) ==
LOC: MTLAB 10:09
PROVIDERS: PCP Family Medicine
DX: E29.1 Testicular hypofunction (principal)
CPT/HCPCS: 36415; 84403